=== PATIENT | female | born 1940 | race African-American/Black ===

== ENCOUNTER 2018-05-15 18:32 | Emergency (ER) | payer OTHER, MEDICAID ==
[~2018-05-15] VITALS: Ht 165.1 cm; Wt 90.0 kg
[~2018-05-15 18:32] MED LIST: AMLO10TA80; BRIM5DRO; CHOL50006; FERR325T30; HYDR25TA; INSASP; INSLAN; ISOS30TA12; METO25TA3; OMEP20TA2; PRAV40TA58; RISP2; RISP3
[2018-05-15 20:43] LABS: BASOPHILS % 0.3 % (0.0-2.0); EOSINOPHILS % 0.3 % (0.0-5.0); HEMATOCRIT. 40.4 % (36.0-48.0); HEMOGLOBIN. 12.6 g/dL (12.0-16.0); MEAN CORPUSCULAR HEMOGLOBIN 23.8 pg (28.0-32.0); MEAN CORPUSCULAR VOLUME 76.5 fL (81.0-99.0); MEAN PLATELET VOLUME 8.7 fl (7.4-10.4); NEUTROPHILS % 84.4 % (40.0-76.0); PLATELET 226 x1000/uL (130-400); RED BLOOD CELL COUNT 5.28 mill/uL (4.2-5.4); RED CELL DISTRIBUTION WIDTH 20.1 % (11.6-14.6)
[2018-05-15 20:52] LABS: PARTIAL THROMBOPLASTIN TIME 29.5 sec (23.4-31.0); PROTHROMBIN TIME 9.7 sec (9.1-11.1)
[2018-05-15 20:53] LABS: CHLORIDE 92 mEq/L (98-107)
[2018-05-15 21:01] LABS: CREATINE KINASE 122 IU/L (26-192)
[2018-05-15 21:04] LABS: CREATINE KINASE MB FRACTION < 1.0 ng/mL (0.5-3.6)
[2018-05-16 01:01] VITALS: BP 126/53
== END 2018-05-16 01:17 | disposition short-term general hospital (02) ==
LOC: ER 18:32
DX: R55 Syncope and collapse (principal); R42 Dizziness and giddiness; E11.22 Type 2 diabetes mellitus with diabetic chronic kidney disease; I12.0 Hypertensive chronic kidney disease with stage 5 chronic kidney disease or end stage renal disease; I51.9 Heart disease, unspecified; N18.6 End stage renal disease; Z99.2 Dependence on renal dialysis; Z79.4 Long term (current) use of insulin; Z79.899 Other long term (current) drug therapy; W18.39XA Other fall on same level, initial encounter; Y93.89 Activity, other specified; Y92.89 Other specified places as the place of occurrence of the external cause; Y99.8 Other external cause status
CPT/HCPCS: 36415; 71045; 80048; 82550; 82553; 82962; 83605; 83880; 84484; 93005; 99285